=== PATIENT | female | born 1995 | race Hispanic/Latino ===

== ENCOUNTER 2018-02-20 08:44 | Emergency (ER) | payer OTHER ==
[~2018-02-20] VITALS: Ht 149.9 cm; Wt 45.4 kg
[2018-02-20 08:47] VITALS: BP 111/75
--- NOTE | 2018-02-20 09:08 | ED GENERAL ADULT ---
History of Present Illness General Chief Complaint: Abdominal Pain/Flank Pain Stated Complaint: ABD PAIN,VOMITING/DARK STOOL X 1 Source: patient Exam Limitations: no limitations Vital Signs & Intake/Output Vital Signs & Intake/Output Vital Signs Date Time Temp Pulse Resp B/P B/P Pulse O2 O2 Flow FiO2 Mean Ox Delivery Rate 02/20 0847 96.6 78 20 111/75 98 Room Air Allergies Coded Allergies: egg (RASH 02/20/18) peanut (RASH 02/20/18) Reconcile Medications Fluticasone/Salmeterol (Advair 250-50 Diskus) 250 MCG-50 MCG/DOSE BLST.W.DEV 1 PUF INH BID BREATHING PROBLEMS (Reported) Montelukast Sodium (Singulair) 10 MG TABLET 1 TAB PO DAILY ALLERGIES ( Reported) Triage Note: PT TO ED C/O VOMITING X 3 DAYS. C/O BLACK STOOL X 1 THIS AM. C/O ABD PAIN. Triage Nurses Notes Reviewed? yes : No Patient currently breastfeeds: No HPI: Patient presents for evaluation of a left sided chest pain as been present for the past 2-3 days. She states it is a sharp stabbing-like left chest pain that will occasionally worsened with deep inspiration. She denies any known injury. In addition she is also having a more diffuse chest pressure that began about 2 days ago that she states is typically associated with her asthma. In addition she has been vomiting and had one black bowel movement this morning. She denies any associated fever or cold symptoms. She states she was sent home from work yesterday because of the pain and vomiting. She is not sure if she vomited blood once yesterday because she states it could've been the pizza that she ate. She did try a dose of Pepto-Bismol because of the vomiting yesterday. She adamantly denies a possibility of as she has never engaged in intercourse. Past History Travel History Traveled to [place] past 21 day No Medical History Any Pertinent Medical History? see below for history Respiratory: asthma Surgical History Surgical History: non-contributory Psychosocial History What is your primary language Mozambican Tobacco Use: Current Not Daily ETOH Use: denies use Illicit Drug Use: denies illicit drug use Family History Hx Contributory? No Review of Systems Review of Systems Constitutional: Reports: no symptoms. EENTM: Reports: no symptoms. Respiratory: Reports: no symptoms. Cardiovascular: Reports: see HPI. GI: Reports: see HPI. Genitourinary: Reports: no symptoms. Musculoskeletal: Reports: no symptoms. Skin: Reports: no symptoms. Neurological/Psychological: Reports: no symptoms. Hematologic/Endocrine: Reports: no symptoms. Immunologic/Allergic: Reports: no symptoms. All Other Systems: Reviewed and Negative Physical Exam Physical Exam General Appearance: SEE BELOW Comments: Gen.: Well-nourished, well-developed, no acute respiratory distress. Head: Normocephalic, atraumatic. Eyes: Normal inspection bilaterally Ears: Normal inspection bilaterally Nose: Normal inspection Throat/mouth : Moist mucosa Neck: Supple, full range of motion, no goiter Heart: Regular rate and rhythm, no murmurs rubs or gallops Lungs: Clear to auscultation bilaterally with normal air entry Chest: Left costochondral tenderness that reproduces the pain of the chief complaint Back: Normal range of motion Abdomen: Soft, nontender, nondistended, normal bowel sounds Extremities: Normal range of motion grossly, equal radial pulses, no cyanosis clubbing or edema Neurologic: Cranial nerves grossly intact, speech is clear Skin: warm and dry Psychiatric: Calm, cooperative, no apparent delusions or hallucinations Rectal exam: No hemorrhoids or other lesions noted externally, Nontender, no palpable masses, no stool in the vault, residue heme negative Core Measures ACS in differential dx? No CVA/TIA Diagnosis: No Sepsis Present: No Sepsis Focused Exam Completed? No Progress Differential Diagnoses I considered the following diagnoses in my evaluation of the patient: Musculoskeletal chest pain, asthma exacerbation, pneumonia, pneumothorax, gastritis, GI bleed, gastroenteritis, pancreatitis, peptic ulcer disease Plan of Care: Orders Procedure Date/time Status URINE DRUG SCREEN FOR ER ONLY 02/20 0908 Complete URINALYSIS 02/20 0908 Complete TROPONIN LEVEL 02/20 0908 Complete MAGNESIUM 02/20 0908 Complete LIPASE 02/20 0908 Complete ETHANOL 02/20 0908 Complete COMPREHENSIVE METABOLIC PANEL 02/20 0908 Complete CBC WITHOUT DIFFERENTIAL 02/20 0908 Complete EKG 02/20 0908 Active Laboratory Tests 02/20/18 0933: Urine Opiates Screen < 100, Methadone Screen < 40, Barbiturate Screen < 60, Ur Phencyclidine Scrn < 6.00, Amphetamines Screen < 100, U Benzodiazepines Scrn < 85, Urine Cocaine Screen < 50, Urine Cannabis Screen > 80.00 H, Urine Color YEL , Urine Clarity CLEAR, Urine pH 7.5, Ur Specific [place] 1.020, Urine Protein NEG, Urine Ketones NEG, Urine Nitrite NEG, Urine Bilirubin NEG, Urine Urobilinogen 0.2, Ur Leukocyte Esterase NEG, Ur Microscopic EXAM NOT REQUIRED, Urine Hemoglobin NEG, Urine Glucose NEG 02/20/18 0930: Anion Gap 8, Estimated GFR > 60, BUN/Creatinine Ratio 24.0, Glucose 92, Calcium 9.3, Magnesium 1.9, Total Bilirubin 0.9, AST 14, ALT 23, Alkaline Phosphatase 54 , Troponin I < 0.01, Total Protein 7.6, Albumin 4.5, Globulin 3.1, Albumin/ Globulin Ratio 1.5, Lipase 98, CBC w Diff NO MAN DIFF REQ, RBC 4.38, MCV 94.5, MCH 32.6 H, MCHC 34.5, RDW 12.6, MPV 9.7, Gran % 65.5, Lymphocytes % 25.3, Monocytes % 5.8, Eosinophils % 3.0, Basophils % 0.4, Absolute Granulocytes 4.9, Absolute Lymphocytes 1.9, Absolute Monocytes 0.4, Absolute Eosinophils 0.2, Absolute Basophils 0, Serum Alcohol < 10.0 Diagnostic Imaging: Discussed w/RAD: Radiology Read. CXR Impression: PATIENT: ZARI MENSAH PRESENT AGE: 23 PATIENT ACCOUNT NO: [id number] : 94 LOCATION: [facility] ORDERING PHYSICIAN: Julius Momin MD SERVICE DATE: 02/20/18 EXAM TYPE: RAD - XRY-CHEST XRAY, TWO VIEWS EXAMINATION: XR CHEST CLINICAL INFORMATION: Left chest pain. Question effusion. COMPARISON: No relevant prior imaging. TECHNIQUE: 2 views of the chest were obtained. FINDINGS: Lungs are clear and well expanded. No focal consolidative disease, pleural effusion, or pneumothorax. The cardiac silhouette and upper mediastinal contours are normal. No acute osseous finding. IMPRESSION: Unremarkable chest radiograph. No consolidative disease or effusion. 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 <Electronically signed in Other Vendor System> SIGNED BY: Juancarlos GENAO,Rodriguez AyonShanda 02/20/18 0947 Initial ED EKG: NSR, rate (67) Comments: 02/20/2018 11:17:55 AM I have updated Zari on her test results. I will provide an anti-inflammatory and antiemetic and she will follow up with a primary care physician for further testing. Departure Departure Disposition: HOME OR SELF CARE Condition: Stable Clinical Impression Primary Impression: Nonspecific abdominal pain Secondary Impressions: Marijuana use, Nausea Additional Instructions: Zofran as needed for nausea or vomiting, diclofenac as needed for chest pain. Follow-up with the [facility] as soon as possible for reevaluation and further testing as indicated. Return if any concerns or sudden worsening. Thank you for choosing the [facility] for your care. It was a pleasure to serve you today. Julius Momin M.D. [facility] Departure Forms: Customer Survey General Discharge Information Prescriptions: Current Visit Scripts Ondansetron (Zofran Odt) 1 TAB SL TID #10 TAB Diclofenac Sodium 1 TAB PO BID PRN PAIN #14 TAB Critical Care Note Critical Care Note Critical Care Time: non-applicable
[2018-02-20 09:46] LABS: ABSOLUTE BASOPHIL COUNT 0 /CUMM (0.0-0.2); ABSOLUTE EOSINOPHIL COUNT 0.2 /CUMM (0.0-0.7); ABSOLUTE GRANULOCYTE CT 4.9 /CUMM (1.4-6.5); ABSOLUTE LYMPH COUNT 1.9 /CUMM (1.2-3.4); ABSOLUTE MONOCYTE COUNT 0.4 /CUMM (0.10-0.60); BASOPHIL % 0.4 % (0.0-2.0); GRANULOCYTE % 65.5 % (42.2-75.2); HEMATOCRIT 41.4 % (37-47); MEAN CORPUSCULAR HGB 32.6 PG (27.0-31.0); MEAN CORPUSCULAR HGB CONC 34.5 G/DL (33.0-37.0); MEAN CORPUSCULAR VOLUME 94.5 FL (81.0-99.0); MEAN PLATELET VOLUME 9.7 FL (7.4-10.4); PLATELET COUNT 225 /CUMM (130-400); RBC DISTRIBUTION WIDTH 12.6 % (11.5-14.5); RED BLOOD CELL CT 4.38 /CUMM (4.20-5.40); WHITE BLOOD CELL COUNT 7.6 /CUMM (4.8-10.8)
--- NOTE | 2018-02-20 09:47 | RADIOLOGY REPORT ---
EXAMINATION: XR CHEST CLINICAL INFORMATION: Left chest pain. Question effusion. COMPARISON: No relevant prior imaging. TECHNIQUE: 2 views of the chest were obtained. FINDINGS: Lungs are clear and well expanded. No focal consolidative disease, pleural effusion, or pneumothorax. The cardiac silhouette and upper mediastinal contours are normal. No acute osseous finding. IMPRESSION: Unremarkable chest radiograph. No consolidative disease or effusion.
[2018-02-20] MEDS ORDERED: ADVAIR 250-501 EACH INH (09:56)
[2018-02-20] MEDS ORDERED: SINGULAIR10 M1 PO (09:56)
[2018-02-20] MEDS ORDERED: ZOFRAN ODT4 M1 SL (11:21)
[2018-02-20] MEDS ORDERED: DICLOFENAC SODI75 M2 PO (11:21)
== END 2018-02-20 11:29 ==
LOC: ERH 08:44
PROVIDERS: Emergency Medicine
DX: F12.10 Cannabis abuse, uncomplicated (principal); R10.9 Unspecified abdominal pain; R07.89 Other chest pain; R11.2 Nausea with vomiting, unspecified
CPT/HCPCS: 71046; 80307; 81003; 93005; 93010; G0480